=== PATIENT | male | born 1990 | race Hispanic/Latino ===

== ENCOUNTER 2017-01-25 20:18 | Emergency (ER) | payer SELFPAY ==
[~2017-01-25] VITALS: Ht 182.9 cm; Wt 142.2 kg
[~2017-01-25 20:18] MED LIST: CIPROFLOXACN500 MG PO; LORTAB 10-325 M1 TAB PO
[2017-01-25 20:21] VITALS: BP 155/92
== END 2017-01-25 21:13 | disposition left against medical advice (07) | DRG 392 ==
LOC: ED 20:18
DX: R10.9 Unspecified abdominal pain (principal); F17.290 Nicotine dependence, other tobacco product, uncomplicated; Z87.442 Personal history of urinary calculi; Z91.19 Patient's noncompliance with other medical treatment and regimen